=== PATIENT | male | born 1995 | race African-American/Black ===

== ENCOUNTER 2019-07-18 | Emergency (ER) | payer SELFPAY ==
[~2019-07-18] MED LIST: ALEVE220 M2 PO; CLINDAMYCIN300 M1 PO; IBUPROFEN600 MG PO; LORTAB 7.5-3251 TAB PO; MOTRIN800 MG PO; NAPROSYN500 MG PO; NO HOME MEDS; NO MEDS; PENICILLN VK500 MG PO; PEPTO BISMOL30 ML OR; PROMETHAZINE25 MG OR; ULTRAM50 M1 PO
== END 2019-07-18 21:27 | disposition home or self-care (01) | DRG 563 ==
DX: S93.601A Unspecified sprain of right foot, initial encounter (principal); S90.31XA Contusion of right foot, initial encounter; W17.89XA Other fall from one level to another, initial encounter; Y93.89 Activity, other specified; Y92.008 Other place in unspecified non-institutional (private) residence as the place of occurrence of the external cause